=== PATIENT | male | born 1975 | race Caucasian/White ===

== ENCOUNTER 2023-06-15 22:39 | Emergency (ER) | payer BC, SELFPAY ==
[2023-06-15 22:41] VITALS: BP 142/87; PULSE 91; RESP 17; TEMP 37; O2SAT 98; BMI 22.4
--- NOTE | 2023-06-15 22:44 | CT_ITS ---
PROCEDURE INFORMATION: Exam: CT Chest With Contrast; Diagnostic Exam date and time: 06/16/2023 3:02 AM Age: 48 years old Clinical indication: Pain; Additional info: Trauma TECHNIQUE: Imaging protocol: Diagnostic computed tomography of the chest with contrast. Radiation optimization: All CT scans at this facility use at least one of these dose optimization techniques: automated exposure control; mA and/or kV adjustment per patient size (includes targeted exams where dose is matched to clinical indication); or iterative reconstruction. Contrast material: ISOVUE; Contrast volume: 75 ml; Contrast route: IV; COMPARISON: No relevant prior studies available. FINDINGS: Lungs: No consolidation. Pleural spaces: No significant pleural effusion. No pneumothorax. Heart: No cardiomegaly. No significant pericardial effusion. Lymph nodes: No pathologically enlarged lymph nodes. Vasculature: Unremarkable. No aortic aneurysm. Bones/joints: Mild wedging mid to lower thoracic vertebral bodies, chronic. Few healed LEFT rib fractures. Probable acute nondisplaced fracture LEFT anterior fourth, fifth ribs. Soft tissues: Minimal gynecomastia. Upper abdomen: See abdomen CT report for additional details. IMPRESSION: 1. No definite CT evidence of visceral injury. 2. Fractures as above.
--- NOTE | 2023-06-15 22:44 | CT_ITS ---
PROCEDURE INFORMATION: Exam: CT Abdomen And Pelvis With Contrast Exam date and time: 06/16/2023 3:02 AM Age: 48 years old Clinical indication: Pain; Additional info: Trauma TECHNIQUE: Imaging protocol: Computed tomography of the abdomen and pelvis with contrast. Radiation optimization: All CT scans at this facility use at least one of these dose optimization techniques: automated exposure control; mA and/or kV adjustment per patient size (includes targeted exams where dose is matched to clinical indication); or iterative reconstruction. Contrast material: ISOVUE; Contrast volume: 75 ml; Contrast route: IV; COMPARISON: No relevant prior studies available. FINDINGS: Limitations: Motion artifact - mild. Lower thorax: See chest CT report for additional details. Liver: Unremarkable. Gallbladder and bile ducts: No calcified stones. No ductal dilation. Pancreas: Unremarkable. No ductal dilation. Spleen: No splenomegaly. Adrenal glands: No mass. Kidneys and ureters: Few too small to characterize lesions within LEFT kidney (<1cm). No significant hydronephrosis. Stomach and bowel: Stool distension of large bowel. No definite mural thickening. No obstruction. Appendix: Normal caliber. No inflammation. Intraperitoneal space: No significant fluid collection. No definite free air. Vasculature: Retroaortic LEFT renal vein. No aneurysm. Lymph nodes: No pathologically enlarged lymph nodes. Urinary bladder: Unremarkable. Reproductive: Mildly enlarged prostate. Bones/joints: Probable bone islands. No acute fracture. Soft tissues: Unremarkable. IMPRESSION: 1. No definite CT evidence of visceral injury. 2. Prostate enlargement. Followup as clinically warranted. COMMENTS: Consistent with the [employer]'s Incidental Findings Committee white paper (J Am Jimmy Radiol 2018): Any incidental renal lesion less than 1 cm or classified as too small to characterize, or any incidental cystic renal lesion characterized as simple-appearing, is likely benign. No follow-up imaging is recommended for these lesions per consensus recommendations based on imaging criteria.
--- NOTE | 2023-06-15 22:45 | CT_ITS ---
PROCEDURE INFORMATION: Exam: CT Cervical Spine Without Contrast Exam date and time: 06/16/2023 2:54 AM Age: 48 years old Clinical indication: Pain; Additional info: Trauma, critical injury suspected TECHNIQUE: Imaging protocol: Computed tomography of the cervical spine without contrast. Radiation optimization: All CT scans at this facility use at least one of these dose optimization techniques: automated exposure control; mA and/or kV adjustment per patient size (includes targeted exams where dose is matched to clinical indication); or iterative reconstruction. COMPARISON: No relevant prior studies available. FINDINGS: Bones/joints: No acute fracture. Normal alignment. Mild degenerative disc disease within mid and lower cervical spine. Lungs: Unremarkable as visualized. Soft tissues: Unremarkable. IMPRESSION: No fracture.
--- NOTE | 2023-06-15 22:45 | CT_ITS ---
PROCEDURE INFORMATION: Exam: CT Lumbar Spine Without Contrast Exam date and time: 06/16/2023 2:59 AM Age: 48 years old Clinical indication: Pain; Additional info: Trauma, critical injury suspected TECHNIQUE: Imaging protocol: Computed tomography of the lumbar spine without contrast. Radiation optimization: All CT scans at this facility use at least one of these dose optimization techniques: automated exposure control; mA and/or kV adjustment per patient size (includes targeted exams where dose is matched to clinical indication); or iterative reconstruction. COMPARISON: No relevant prior studies available. FINDINGS: Bones/joints: No acute fracture. Normal alignment. Mild degenerative changes of spine. Soft tissues: Unremarkable. IMPRESSION: No fracture. If back pain persists, consider MRI for further evaluation.
--- NOTE | 2023-06-15 22:45 | CT_ITS ---
PROCEDURE INFORMATION: Exam: CT Thoracic Spine Without Contrast Exam date and time: 06/16/2023 2:56 AM Age: 48 years old Clinical indication: Pain; Additional info: Trauma, critical injury suspected TECHNIQUE: Imaging protocol: Computed tomography of the thoracic spine without contrast. Radiation optimization: All CT scans at this facility use at least one of these dose optimization techniques: automated exposure control; mA and/or kV adjustment per patient size (includes targeted exams where dose is matched to clinical indication); or iterative reconstruction. COMPARISON: No relevant prior studies available. FINDINGS: Bones/joints: No acute fracture. Mild wedging mid to lower thoracic vertebral bodies, likely chronic. Schmorl's nodes. Normal alignment. Mild degenerative changes of spine. Soft tissues: Few tiny calcifications or foreign bodies within midline posterior subcutaneous tissues. IMPRESSION: No fracture. If back pain persists, consider MRI for further evaluation.
--- NOTE | 2023-06-15 22:45 | CT_ITS ---
PROCEDURE INFORMATION: Exam: CT Head Without Contrast Exam date and time: 06/16/2023 2:51 AM Age: 48 years old Clinical indication: Pain; Headache; Additional info: Trauma, critical injury suspected TECHNIQUE: Imaging protocol: Computed tomography of the head without contrast. Radiation optimization: All CT scans at this facility use at least one of these dose optimization techniques: automated exposure control; mA and/or kV adjustment per patient size (includes targeted exams where dose is matched to clinical indication); or iterative reconstruction. COMPARISON: No relevant prior studies available. FINDINGS: Brain: Mild atrophy. No intracranial hemorrhage. No mass. No edema. Cerebral ventricles: No hydrocephalus. Paranasal sinuses: No acute sinusitis. Mastoid air cells: No significant effusion. Orbital cavities: Unremarkable as visualized. Bones/joints: No acute fracture. Soft tissues: Minimal scalp swelling. IMPRESSION: No intracranial hemorrhage.
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
[2023-06-15] MEDS: ACETAMINOPHEN 500MG TAB 1000 MG PO (23:15)
[2023-06-15] MEDS: LACTATED RINGERS 1000ML 1,000 ML 999 ML IV (23:15)
[2023-06-15 23:19] LABS: Basophils % 0.3 % (0.1-2.0); Eosinophils # 0.2 K/mm3 (0.0-0.4); Hemoglobin 15.4 g/dL (14.1-18.0); Lymphocytes # 1.3 K/mm3 (0.7-4.5); Lymphocytes % 14.5 % (10-50); Mean Corpuscular HGB Conc 32.8 g/dL (31.8-35.4); Mean Corpuscular Hemoglobin 33.5 pg (27.0-31.2); Mean Corpuscular Volume 102.2 fl (80-94); Mean Platelet Volume 7.8 fl (7.4-10.4); Monocytes # 0.5 K/mm3 (0.1-1.0); Monocytes % 5.7 % (1.7-9.3); Neutrophils # 7.1 K/mm3 (1.8-7.8); Neutrophils % 77.6 % (37.0-80.0); Platelet Count 215 K/mm3 (142-424); White Blood Count 9.1 K/mm3 (4.8-10.8)
[2023-06-15 23:23] LABS: Alanine Aminotransferase 47 U/L (12-78); Albumin Level 3.8 g/dl (3.5-5.0); Albumin/Globulin Ratio 1.2 (1.1-1.8); Alkaline Phosphatase 48 U/L (38-126); Anion Gap 9.6 mEq/L (5-15); Aspartate Amino Transferase 46 U/L (17-59); Bilirubin,Total 0.5 mg/dl (0.2-1.3); Blood Urea Nitrogen 15 mg/dl (9-20); Calcium 9.4 mg/dl (8.4-10.2); Carbon Dioxide 25 mmol/L (22.0-30.0); Chloride 106 mmol/L (98-107); Creatinine Clearance Estimated 127 mL/min (50-200); Estimated Glomerular Filt Rate 121 ml/min (>60); GFR (African American) 146 ML/MIN (>60); Globulin 3.2 g/dL (1.3-3.2); Glucose 88 mg/dl (74-100); Lipase 50 U/L (23-300); Potassium 3.6 mmoL/L (3.5-5.1); Sodium 137 mmol/L (136-145)
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
--- NOTE | 2023-06-15 23:26 | PC.NURSE ---
Sitting at the nurses station charting vitals on a different patient, I looked up and noticed this patient trying to remove his IV from his arm. When asked what the patient was doing he replied with are you a endoscope technician? at that time two nurses entered the room and asked the patient to get back on the stretcher and he repeatedly said I don't want that CT scan. Patient returned safely to the stretcher and was placed back on the monitor with both side rails of the stretcher raised and secured.
--- NOTE | 2023-06-15 23:36 | PC.NURSE ---
Contacted Consuelo Lopez to follow up if she was able to reach someone that could give us more information on the patients medical history and baseline mental status. She states that the person she reached out to has not responded. She knows that his family visits sporadically, but does not know how to reach them. Updated that it is imperative that we reach someone that can give us more information regarding patient's medical and psychological history. Updated provider.
[2023-06-15 23:41] LABS: Activated Partial Thrombo Time 32.2 seconds (22.8-30.6); INR 1.01 (0.9-1.1); Prothrombin Time 10.9 seconds (10.1-12.5)
--- NOTE | 2023-06-15 23:42 | PC.NURSE ---
Received return call from Consuelo at the assisted living facility who states that she still has not received any information from anyone that has additional information on the patient. Notified provider. Asked her to have them contact us if she is successful in reaching someone that can provide more information.
--- NOTE | 2023-06-15 23:47 | ECG_ITS ---
APPROVED REPORT Exam: Resting ECG HR:79 bpm ECG Measurements Heart Rate 79 AXES [place] 171 P 59 QRSd 98 QRS 69 QT 334 T 30 QTc 369 Conclusion SINUS RHYTHM NORMAL ECG UNCONFIRMED REPORT Electronically signed by : Jadiel Covington MD 06/17/2023 06:34:21
[2023-06-15] MEDS: droPERidol 5MG/2ML VIAL 5 MG IV (23:54)
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
[2023-06-16] MEDS: LORazepam 2MG/ML VIAL 2 MG IV ×2 (00:51→01:43)
[2023-06-16] MEDS: SODIUM CHLORIDE 0.9% 10ML VIAL 10 ML IV ×3 (00:51→02:07)
[2023-06-16] MEDS: diphenhydrAMINE 50MG/ML VIAL 50 MG IV (01:44)
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
[2023-06-16] MEDS: LORazepam 2MG/ML VIAL 4 MG IV (02:06)
--- NOTE | 2023-06-16 02:41 | PC.NURSE ---
Patient had gotten up and sat in chair in room. Patient states he just wants to sit in the chair. Explained to patient that we needed to get all the testing complete so we can ensure his safety before he returns to his assisted living facility. Patient has self removed PIVL at this time, but agrees to allow us to start another. Replaced PIVL and this RN, the provider, blueprinter, accompanied patient to CT scan at this time. Patient is easily redirectable at this time. Patient asks several questions regarding CT scan safety, all questions were answered by provider.
[2023-06-16 03:10] VITALS: BP 181/102; PULSE 94; O2SAT 97
[2023-06-16] MEDS: IOPAMIDOL-370 (76%);100ML BOTTLE 75 ML IV (03:11)
[2023-06-16] MEDS: SODIUM CHLORIDE 0.9% 10ML SYR (RAD ONLY) 10 ML IV (03:11)
[2023-06-16 03:30] VITALS: BP 155/96; PULSE 75; O2SAT 96
[2023-06-16 04:00] VITALS: BP 146/88; PULSE 71; O2SAT 97
[2023-06-16 04:31] VITALS: BP 103/49; PULSE 65; O2SAT 98
--- NOTE | 2023-06-16 04:33 | PC.NURSE ---
Attempted to contact the [facility] to inquire about this patient, multiple phone calls made with no response.
--- NOTE | 2023-06-16 04:41 | PC.NURSE ---
Contacted [facility] in regards to finding a contact for the [facility], they provided two numbers. Dickosn can be reached at [phone] and Tierney can be reached at [phone]. Criss Chung RN contacted [facility] and made contact I attempted to contact Tierney and she did not answer the phone call no voicemail was left.
--- NOTE | 2023-06-16 04:50 | PC.NURSE ---
Contacted [facility] [phone], property caretaker/web ui designer of [facility]. He reports that all their records are on paper and the it applications manager Eliz would be the person to be able to update us with more information regarding patient's admitting diagnoses and baseline mentation. He does state that the patient is known to him and he is frequently confused, but he is unaware of specific diagnoses and unable to obtain the information remotely at this time. He states that he will be the person that will mushroom picker the patient at time of discharge. He is going to attempt to contact the it applications manager and have her contact us.
--- NOTE | 2023-06-16 04:59 | PC.NURSE ---
Received return call from Eliz, training program manager of [facility], who confirmed that patient has a history of paranoid schizophrenia and is at baseline intermittently confused. When his actions were described to her she confirmed that he is within his baseline behavior. Notified provider of information.
[2023-06-16 05:00] VITALS: BP 113/51; PULSE 71; O2SAT 98
--- NOTE | 2023-06-16 06:01 | PC.NURSE ---
Patient awoke and called out. Asked when he would be ready to go home and asked to sit in the chair. Patient was able to sit in the chair, asked for a drink. Offered patient soda and some food. Patient is eating and drinking without difficulty at this time. Notified provider that patient was awake and able to ambulate and interact appropriately. Provider states that patient is ready for discharge. Contacted [place] to apple picker patient at this time.
[2023-06-16 06:04] VITALS: BP 103/53; PULSE 62; RESP 16; TEMP 36.7; O2SAT 97
== END 2023-06-16 06:34 | disposition other institution (70) ==
PROVIDERS: Emergency Provider Student in an Organized Health Care Education/Training Program
DX: S09.8XXA Other specified injuries of head, initial encounter (principal); S19.9XXA Unspecified injury of neck, initial encounter; S29.9XXA Unspecified injury of thorax, initial encounter; S39.91XA Unspecified injury of abdomen, initial encounter; S39.92XA Unspecified injury of lower back, initial encounter; F20.0 Paranoid schizophrenia; N40.0 Benign prostatic hyperplasia without lower urinary tract symptoms; F17.200 Nicotine dependence, unspecified, uncomplicated; Y04.8XXA Assault by other bodily force, initial encounter
CPT/HCPCS: 70450; 71260; 72125; 72128; 72131; 74177; 80053; 83690; 85025; 85610; 85730; 93005; 96361; 96374; 96375; 96376; 99285; J1790; Q9967

== ENCOUNTER 2024-04-27 10:56 | Emergency (ER) | payer BC, SELFPAY ==
[2024-04-27 11:03] VITALS: BP 100/79; PULSE 79; RESP 20; TEMP 36.9; O2SAT 99; BMI 25.8
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
--- NOTE | 2024-04-27 11:31 | PC.NURSE ---
meal tray ordered
[2024-04-27] MEDS: hydrOXYzine pamoate 25MG CAPSULE 50 MG PO (11:40)
--- NOTE | 2024-04-27 12:24 | PC.NURSE ---
[facility] called and said they are making arrangemants to spanish moss picker resident
--- NOTE | 2024-04-27 12:30 | PC.NURSE ---
Eliz from [facility] called and stated they have no means for transportation.
--- NOTE | 2024-04-27 12:45 | PC.NURSE ---
[facility] is unable to pick pt up and transport due to them closing at 1300
--- NOTE | 2024-04-27 12:54 | PC.NURSE ---
talked with pt parent who states they are [place] miles away and unable to pick pt up
--- NOTE | 2024-04-27 13:11 | PC.NURSE ---
spoke with tim who is going to give pt a ride to [facility], hs aware of payment that needs placed to transport pt.
[2024-04-27 13:14] VITALS: BP 106/64; PULSE 78; RESP 18; TEMP 36.6; O2SAT 99
== END 2024-04-27 13:16 | disposition home or self-care (01) ==
PROVIDERS: Emergency Provider Emergency Medicine
DX: F41.9 Anxiety disorder, unspecified (principal)
CPT/HCPCS: 99283